=== PATIENT | male | born 1990 | race Caucasian/White ===

== ENCOUNTER 2016-07-04 19:03 | Emergency (ER) | END 2016-07-04 19:44 | disposition home or self-care (01) | DX: L03.011 Cellulitis of right finger (principal) ==

== ENCOUNTER 2016-07-20 20:13 | Emergency (ER) | payer MEDICAID ==
[~2016-07-20] VITALS: Ht 185.4 cm; Wt 88.0 kg
[~2016-07-20 20:13] MED LIST: AMO500 PO; BACTDS PO; CEPH-443 PO; HYDR-906 PO; IBUP-1542 PO; IBUP800T25 PO; NAPR-260 PO
[2016-07-20 21:28] VITALS: Ht 185.4 cm; Wt 88.0 kg
[2016-07-20] MEDS ORDERED: CLIN-73 PO (22:53)
[2016-07-20] MEDS ORDERED: IBUP-1542 PO (22:54)
[2016-07-20] MEDS ORDERED: HYDR-906 PO (22:54)
[2016-07-20] MEDS ORDERED: KETOROLAC 30 MG INJ IM STA (22:55)
--- NOTE | 2016-07-20 23:03 | ERD ---
ER Documentation Chief Complaint Date/Time DATE: 07/20/16 TIME: 22:55 Chief Complaint ingrown Right Toe HPI Patient is a 26-year-old male who presents to the emergency department for concerns of ongoing ingrown right toenail. He was seen here on 07/04/2016 and diagnosed with a paronychia of R big toe. Patient states that he completed the full course of antibiotics which did intermittently resolve his symptoms however they have started again. Patient states that he wears close toed shoes daily at work. Patient reports increased perspiration of feet. Patient reports swelling and erythema surrounding his nailbed. Patient reports having his partial toenail removed in the past. Patient denies any fever, chills, nausea, vomiting. Patient states it is painful to walk. Patient denies any recent trauma to the affected region. Of note, patient has not seen a office clerk assistant yet. He states that he is going to go to his primary care physician for referral this weekend. ROS All systems reviewed and are negative except as per history of present illness. Medications Home Meds Active Scripts Ibuprofen* (Ibuprofen*) 600 Mg Tablet, 600 MG PO Q6, #30 TAB Prov:VANESSA MOSCOSO PA-C 07/20/16 Hydrocodone/Acetaminophen ([place] 5-325 Tablet) 1 Each Tablet, 1 TAB PO Q6H Y for PAIN, #7 TAB Prov:VANESSA MOSCOSO PA-C 07/20/16 Clindamycin Hcl* (Clindamycin Hcl*) 300 Mg Capsule, 300 MG PO TID for 10 Days, CAP Prov:VANESSA MOSCOSO PA-C 07/20/16 Ibuprofen* (Motrin*) 600 Mg Tab, 600 MG PO Q6H Y for PAIN AND OR ELEVATED TEMP, #30 TAB Prov:HELEN GARSIA SOURCING ASSISTANT 07/04/16 Sulfamethoxazole-Trimethoprim* (Bactrim* DS) 800-160 Mg Tab, 1 TAB PO BID for 10 Days, TAB Prov:HELEN GARSIA SOURCING ASSISTANT 07/04/16 Cephalexin* (Keflex*) 500 Mg Capsule, 500 MG PO QID for 10 Days, CAP Prov:HELEN GARSIA SOURCING ASSISTANT 07/04/16 Hydrocodone/Acetaminophen ([place] 5-325 Tablet) 1 Each Tablet, 1 TAB PO Q6H Y for SEVERE PAIN LEVEL 7-10, #20 TAB Prov:HELEN GARSIA CABRERA TLexii SOURCING ASSISTANT 07/04/16 Amoxicillin* (Amoxicillin*) 500 Mg Cap, 500 MG PO BID for 10 Days, #20 CAP Prov:MANAGUELOD,VANESSA P SOURCING ASSISTANT 04/02/16 Ibuprofen* (Ibuprofen*) 600 Mg Tablet, 1 CAP PO Q6 for 7 Days, #30 TAB Prov:MANAGUELOD,VANESSA P SOURCING ASSISTANT 04/02/16 Ibuprofen* (Motrin*) 600 Mg Tab, 600 MG PO Q6, #30 TAB Prov:VI HUFFC 03/12/16 Naproxen* (Naprosyn*) 500 Mg Tablet, 500 MG PO BID Y for PAIN AND/OR INFLAMMATION, #30 TAB Prov:ANDREA POLLACKC 11/25/15 Cephalexin* (Keflex*) 500 Mg Capsule, 500 MG PO QID for 5 Days, CAP Prov:TAVON CARMONA NP 08/30/15 Ibuprofen* (Motrin*) 800 Mg Tab, 800 MG PO Q6H Y for PAIN AND OR ELEVATED TEMP, #30 TAB Prov:TAVON CARMONA SOURCING ASSISTANT 08/30/15 Ibuprofen* (Motrin*) 600 Mg Tab, 600 MG PO Q6, #14 TAB Prov:MARY GRANGER MD 04/18/15 Ibuprofen* (Motrin*) 800 Mg Tab, 800 MG PO Q6H Y for PAIN AND OR ELEVATED TEMP, #30 TAB Prov:VI HUFF PA-C 12/07/14 Cephalexin* (Keflex*) 500 Mg Capsule, 500 MG PO QID for 5 Days, CAP Prov:VI HUFFC 12/07/14 Allergies Allergies: Coded Allergies: No Known Drug Allergies (Verified Allergy, Unknown, 08/30/15) PMhx/Soc History of Surgery: No Anesthesia Reaction: No Hx Neurological Disorder: No Hx Respiratory Disorders: No Hx Cardiac Disorders: No Hx Psychiatric Problems: No Hx Miscellaneous Medical Probl: Yes (right toenail ingrown, paronychia) Hx Alcohol Use: No Hx Substance Use: No Hx Tobacco Use: No Physical Exam Vitals Vital Signs Date Time Temp Pulse Resp B/P Pulse Ox O2 Delivery O2 Flow Rate FiO2 07/20/16 21:28 98.3 81 20 130/77 97 Physical Exam GENERAL: Well-developed, well-nourished male. Appears in no acute distress. HEAD: Normocephalic, atraumatic. EYES: Pupils are equally reactive bilaterally. EOMs grossly intact. No conjunctival erythema. ENT: Moist mucous membranes. No uvula deviation. No kissing tonsils. NECK: Supple. Normal range of motion of the neck. LUNG: Clear to auscultation bilaterally. No rhonchi, wheezing, rales or coarse breath sounds. HEART: Regular rate and rhythm. No murmurs, rubs or gallops. EXTREMITIES: Equal pulses bilaterally. No peripheral clubbing, cyanosis or edema. No unilateral leg swelling. NEUROLOGIC: Alert and oriented. Moving all four extremities without any difficulty. Normal speech. Steady gait. SKIN: Normal color. Warm and dry. RIGHT FOOT, 1st TOE: Partial removal of lateral aspect of toenail noted, consistent with previous history of ingrown toenail removal. Erythema and swelling noted to the lateral aspect of the toenail. Area is tender to palpation. No purulence or discharge was noted. No areas of fluctuance. No lymphatic streaking. Normal ROM of all toes and ankle. Results 24 hrs Current Medications Medications (Trade) Dose Ordered Sig/Lavonne Route PRN Reason Start Time Stop Time Status Last Admin Dose Admin Ketorolac Tromethamine (Toradol) 30 mg ONCE STAT IM 07/20/16 22:55 07/20/16 22:56 DC 07/20/16 23:01 Procedures/MDM MEDICAL DECISION MAKING: Patient is a 26-year-old male who presents with concerns of right first toe ingrown toenail. Patient was seen here on 07/04/16 diagnosed with a paronychia. Physical exam findings today reveal persistence of paronychia, no ingrown toenail findings. Patient states that he has not seen a office clerk assistant yet. At this time, patient's presentation is most consistent with paronychia. Low suspicion for felon, insect bite, trauma, fracture or ingrown toenail. At this time, I will prescribed Clindamycin due to ongoing symptoms. PRESCRIPTION: Clindamycin, Ibuprofen, [place] DISCHARGE: At this time, patient is stable for discharge and outpatient management. I have instructed the patient to follow-up with his/her primary care physician in 1-2 days. Patient will need to see a office clerk assistant EDELMIRA. Epsom salt soaks/ warm compresses advised. Avoid wearing closed toe shoes. Change socks multiple times for excessive sweating of feet. . I have instructed the patient to promptly return to the ER for any new or worsening symptoms including increased pain, fever, nausea, vomiting, weakness or LOC. The patient and/or family expressed understanding of and agreement with this plan. All questions were answered. Home care instructions were provided. Departure Diagnosis: Primary Impression: Paronychia Laterality: right Qualified Code: L03.011 - Paronychia, right Additional Impression: Nail problem Condition: Stable Patient Instructions: Paronychia Referrals: EZEQUIEL GRUBBS DPM, ABID N DPM ESPENSEN, ERIC H. D.P.M. HAGOPJANIAN, ARMEN DPTENNILLE FREEDMAN MD,NADIA LORENZO DPGuero [facility] Additional Instructions: FOLLOW UP WITH YOUR PRIMARY CARE PHYSICIAN TOMORROW.Return to this facility if you are not improving as expected. Patient will need to see a office clerk assistant EDELMIRA for further management of his ongoing paronchyia and ingrown toenail. Epsom salts soaks were advised. Patient should continue antibiotics as prescribed. Take pain medication as prescribed. VANESSA MOSCOSO PA-C Jul 20, 2016 23:03
== END 2016-07-20 23:55 | disposition home or self-care (01) ==
LOC: FTE 20:13
DX: L03.011 Cellulitis of right finger (principal)
CPT/HCPCS: 96372; J1885; Z7502

== ENCOUNTER 2018-11-12 02:55 | Emergency (ER) | payer MEDICAID, OTHER ==
[~2018-11-12] VITALS: Ht 185.4 cm; Wt 88.0 kg
[~2018-11-12 02:55] MED LIST changes: -AMO500 PO; +AMOX500C2 PO; +CLIN300C10 PO; +HYDR-4011 PO; -HYDR-906 PO; -IBUP800T25 PO; +IBUP800T48 PO; -NAPR-260 PO; +NAPR-985 PO
[2018-11-12 02:58] VITALS: Ht 185.4 cm; Wt 88.0 kg
--- NOTE | 2018-11-12 03:48 | ERD ---
ER Documentation Chief Complaint Chief Complaint ingrown toe x 2 days with pain HPI 28-year-old male, previously healthy, presents to the emergency department, complaining of worsening of right hallux pain after trimming the toenail 2 days ago. The patient denies fever or chills. No medications taken at this time. ROS All systems reviewed and are negative except as per history of present illness. Medications Home Meds Active Scripts Ibuprofen* (Motrin*) 400 Mg Tab, 400 MG PO Q6H PRN for PAIN AND OR ELEVATED TEM P, #20 TAB Prov:NIKOLAY WINTER MD 11/12/18 Cephalexin* (Keflex*) 500 Mg Capsule, 500 MG PO BID for 7 Days, CAP Prov:NIKOLAY WINTER MD 11/12/18 Sulfamethoxazole/Trimethoprim* (Bactrim Ds* Tablet) 1 Each Tablet, 1 TAB PO BID, #14 TAB Prov:NIKOLAY WINTER MD 11/12/18 Ibuprofen* (Ibuprofen*) 600 Mg Tablet, 600 MG PO Q6, #30 TAB Prov:VANESSA MOSCOSO PA-C 07/20/16 Hydrocodone/Acetaminophen ([place] 5-325 Tablet) 1 Each Tablet, 1 TAB PO Q6H PRN for PAIN, #7 TAB Prov:VANESSA MOSCOSO PA-C 07/20/16 Clindamycin Hcl* (Clindamycin Hcl*) 300 Mg Capsule, 300 MG PO TID for 10 Days, CAP Prov:VANESSA MOSCOSO PA-C 07/20/16 Ibuprofen* (Motrin*) 600 Mg Tab, 600 MG PO Q6H PRN for PAIN AND OR ELEVATED TEMP, #30 TAB Prov:HELEN GARSIA NP 07/04/16 Sulfamethoxazole-Trimethoprim* (Bactrim* DS) 800-160 Mg Tab, 1 TAB PO BID for 10 Days, TAB Prov:HELEN GARSIA NP 07/04/16 Cephalexin* (Keflex*) 500 Mg Capsule, 500 MG PO QID for 10 Days, CAP Prov:HELEN GARSIA NP 07/04/16 Hydrocodone/Acetaminophen ([place] 5-325 Tablet) 1 Each Tablet, 1 TAB PO Q6H PRN for SEVERE PAIN LEVEL 7-10, #20 TAB Prov:HELEN GARSIALexii LEAD CASE MANAGER 07/04/16 Amoxicillin* (Amoxicillin*) 500 Mg Cap, 500 MG PO BID for 10 Days, #20 CAP Prov:MANAGUELOD,VANESSA P LEAD CASE MANAGER 04/02/16 Ibuprofen* (Ibuprofen*) 600 Mg Tablet, 1 CAP PO Q6 for 7 Days, #30 TAB Prov:MANAGUELOD,VANESSA P LEAD CASE MANAGER 04/02/16 Ibuprofen* (Motrin*) 600 Mg Tab, 600 MG PO Q6, #30 TAB Prov:VI HUFFC 03/12/16 Naproxen* (Naprosyn*) 500 Mg Tablet, 500 MG PO BID PRN for PAIN AND/OR INFLAMMATION, #30 TAB Prov:ANDREA POLLACKC 11/25/15 Cephalexin* (Keflex*) 500 Mg Capsule, 500 MG PO QID for 5 Days, CAP Prov:TAVON CARMONA LEAD CASE MANAGER 08/30/15 Ibuprofen* (Motrin*) 800 Mg Tab, 800 MG PO Q6H PRN for PAIN AND OR ELEVATED TEMP, #30 TAB Prov:TAVON CARMONA. LEAD CASE MANAGER 08/30/15 Ibuprofen* (Motrin*) 600 Mg Tab, 600 MG PO Q6, #14 TAB Prov:MARY GRANGER MD 04/18/15 Ibuprofen* (Motrin*) 800 Mg Tab, 800 MG PO Q6H PRN for PAIN AND OR ELEVATED TEMP, #30 TAB Prov:VI HUFFC 12/07/14 Cephalexin* (Keflex*) 500 Mg Capsule, 500 MG PO QID for 5 Days, CAP Prov:VI HUFFC 12/07/14 Allergies Allergies: Coded Allergies: No Known Drug Allergies (Verified Allergy, Unknown, 08/30/15) PMhx/Soc History of Surgery: No Anesthesia Reaction: No Hx Neurological Disorder: No Hx Respiratory Disorders: No Hx Cardiac Disorders: No Hx Psychiatric Problems: No Hx Miscellaneous Medical Probl: Yes (right toenail ingrown, paronychia) Hx Alcohol Use: No Hx Substance Use: No Hx Tobacco Use: No Smoking Status: Never smoker FmHx Family History: No diabetes, No coronary disease Physical Exam Vitals Vital Signs Date Temp Pulse Resp B/P (MAP) Pulse Ox O2 O2 Flow FiO2 Time Delivery Rate 11/12/18 98.4 68 16 132/72 100 02:58 (92) Physical Exam Const: No acute distress Head: Atraumatic Eyes: Normal Conjunctiva ENT: Normal External Ears, Nose and Mouth. Neck: Full range of motion. No meningismus. Resp: Clear to auscultation bilaterally Cardio: Regular rate and rhythm, no murmurs Abd: Soft, non tender, non distended. Normal bowel sounds Skin: No petechiae or rashes Back: No midline or flank tenderness Ext: Right hallux: Medial nail fold with edema, erythema and purulent discharge. Neur: Awake and alert Psych: Normal Mood and Affect Procedures/MDM Differential diagnoses include paronychia, cellulitis, diabetic ulcer, osteomyelitis. Low suspicion for acute or chronic systemic process. Physical examination consistent with right onychocryptosis with paronychia. Some side effects of prescribed medications (headache, rash, nausea, vomiting, diarrhea, drowsiness, habituation, bleeding, hypertension, interactions with other medications) were reviewed. If the symptoms get worse return to the Emergency Department immediately. Instructions explained and given directly by me to the patient with acknowledgment and demonstrated understanding. Disclaimer: Inadvertent spelling and grammatical errors are likely due to EHR/dictation software use and do not reflect on the overall quality of patient care. Also, please note that the electronic time recorded on this note does not necessarily reflect the actual time of the patient encounter. Departure Diagnosis: Primary Impression: Ingrowing nail, right great toe Condition: Stable Additional Instructions: Thank you very much for allowing us to participate in your care. Your health and safety is our top priority at [facility]. Call your primary care doctor TOMORROW for an appointment during the next 2-4 days and bring all the information provided. Have prescriptions filled and follow precisely the directions on the label. If the symptoms get worse and your provider is unavailable, return to the Emergency Department immediately. NIKOLAY WINTER MD Nov 12, 2018 03:48
[2018-11-12] MEDS ORDERED: CEPH-443 PO (03:50)
[2018-11-12] MEDS ORDERED: IBUP-1561 PO (03:50)
[2018-11-12] MEDS ORDERED: SULF1TAB31 PO (03:50)
[2018-11-12 04:13] VITALS: BP 112/67; PULSE 65; RESP 18
== END 2018-11-12 04:15 | disposition home or self-care (01) ==
LOC: FTE 02:55
DX: L60.0 Ingrowing nail (principal)
CPT/HCPCS: 99283

== ENCOUNTER 2018-11-27 15:36 | Emergency (ER) | payer OTHER ==
[~2018-11-27] VITALS: Ht 185.4 cm; Wt 87.1 kg
[~2018-11-27 15:36] MED LIST changes: +IBUP-1561 PO; +SULF1TAB31 PO
[2018-11-27 15:44] VITALS: BP 134/82; PULSE 100; RESP 20; Ht 185.4 cm; Wt 87.1 kg
[2018-11-27] MEDS ORDERED: SOD CHLORIDE 0.9% 1,000 ML IV STA (16:39)
[2018-11-27] MEDS ORDERED: DICY10CA40 PO (17:57)
--- NOTE | 2018-11-27 18:00 | ERD ---
ER Documentation Chief Complaint Chief Complaint abdominal pain and diarrhea x 1 week got worse HPI Patient is a 28-year-old male, presents the ER for concerns of abdominal pain and diarrhea for 3 days. Patient states that his pain is localized to the umbilical region. Patient describes the pain to be burning in nature. Patient states the pain comes and goes. Patient denies any fevers, chills, nausea or vomiting. Patient reports 3-4 episodes of loose, nonbloody stools per day. Patient states his symptoms started after eating chicken and meat at a cookout. Patient denies any hematocrit emesis. Patient denies any melena. Patient states he did try to take [place] with minimal alleviation of symptoms. Patient is tolerating p.o. fluids. Patient denies any changes in appetite. Patient denies any urinary symptoms. ROS All systems reviewed and are negative except as per history of present illness. Medications Home Meds Active Scripts Dicyclomine HCl (Dicyclomine HCl) 10 Mg Capsule, 10 MG PO TID PRN for ABDOMINAL CRAMPING, #20 CAP Prov:VANESSA MOSCOSO PA-C 11/27/18 Ibuprofen* (Motrin*) 400 Mg Tab, 400 MG PO Q6H PRN for PAIN AND OR ELEVATED TEMP, #20 TAB Prov:NIKOLAY WINTER MD 11/12/18 Cephalexin* (Keflex*) 500 Mg Capsule, 500 MG PO BID for 7 Days, CAP Prov:NIKOLAY WINTER MD 11/12/18 Sulfamethoxazole/Trimethoprim* (Bactrim Ds* Tablet) 1 Each Tablet, 1 TAB PO BID, #14 TAB Prov:NIKOLAY WINTER MD 11/12/18 Ibuprofen* (Ibuprofen*) 600 Mg Tablet, 600 MG PO Q6, #30 TAB Prov:VANESSA MOSCOSO PA-C 07/20/16 Hydrocodone/Acetaminophen ([place] 5-325 Tablet) 1 Each Tablet, 1 TAB PO Q6H PRN for PAIN, #7 TAB Prov:VANESSA MOSCOSO PA-C 07/20/16 Clindamycin Hcl* (Clindamycin Hcl*) 300 Mg Capsule, 300 MG PO TID for 10 Days, CAP Prov:VANESSA MOSCOSO PA-C 07/20/16 Ibuprofen* (Motrin*) 600 Mg Tab, 600 MG PO Q6H PRN for PAIN AND OR ELEVATED TEMP, #30 TAB Prov:HELEN GARSIA TECHNOLOGY COACH 07/04/16 Sulfamethoxazole-Trimethoprim* (Bactrim* DS) 800-160 Mg Tab, 1 TAB PO BID for 10 Days, TAB Prov:HELEN GARSIA TECHNOLOGY COACH 07/04/16 Cephalexin* (Keflex*) 500 Mg Capsule, 500 MG PO QID for 10 Days, CAP Prov:HELEN GARSIA TECHNOLOGY COACH 07/04/16 Hydrocodone/Acetaminophen ([place] 5-325 Tablet) 1 Each Tablet, 1 TAB PO Q6H PRN for SEVERE PAIN LEVEL 7-10, #20 TAB Prov:HELEN GARSIA TECHNOLOGY COACH 07/04/16 Amoxicillin* (Amoxicillin*) 500 Mg Cap, 500 MG PO BID for 10 Days, #20 CAP Prov:MANAGUELOD,VANESSA P TECHNOLOGY COACH 04/02/16 Ibuprofen* (Ibuprofen*) 600 Mg Tablet, 1 CAP PO Q6 for 7 Days, #30 TAB Prov:MANAGUELOD,VANESSA P TECHNOLOGY COACH 04/02/16 Ibuprofen* (Motrin*) 600 Mg Tab, 600 MG PO Q6, #30 TAB Prov:VI HUFF PA-C 03/12/16 Naproxen* (Naprosyn*) 500 Mg Tablet, 500 MG PO BID PRN for PAIN AND/OR INFLAMMATION, #30 TAB Prov:ANDREA POLLACKC 11/25/15 Cephalexin* (Keflex*) 500 Mg Capsule, 500 MG PO QID for 5 Days, CAP Prov:TAVON CARMONA NP 08/30/15 Ibuprofen* (Motrin*) 800 Mg Tab, 800 MG PO Q6H PRN for PAIN AND OR ELEVATED TEMP, #30 TAB Prov:TAVON CARMONA TECHNOLOGY COACH 08/30/15 Ibuprofen* (Motrin*) 600 Mg Tab, 600 MG PO Q6, #14 TAB Prov:MARY GRANGER MD 04/18/15 Ibuprofen* (Motrin*) 800 Mg Tab, 800 MG PO Q6H PRN for PAIN AND OR ELEVATED TEMP, #30 TAB Prov:VI HUFF PA-C 12/07/14 Cephalexin* (Keflex*) 500 Mg Capsule, 500 MG PO QID for 5 Days, CAP Prov:VI HUFF PA-C 12/07/14 Allergies Allergies: Coded Allergies: No Known Drug Allergies (Verified Allergy, Unknown, 08/30/15) PMhx/Soc History of Surgery: No Anesthesia Reaction: No Hx Neurological Disorder: No Hx Respiratory Disorders: No Hx Cardiac Disorders: No Hx Psychiatric Problems: No Hx Miscellaneous Medical Probl: Yes (right toenail ingrown, paronychia) Hx Alcohol Use: No Hx Substance Use: No Hx Tobacco Use: No FmHx Family History: No diabetes Physical Exam Vitals Vital Signs Date Temp Pulse Resp B/P (MAP) Pulse Ox O2 O2 Flow FiO2 Time Delivery Rate 11/27/18 99.3 100 20 134/82 98 15:44 (99) Physical Exam GENERAL: Well-developed, well-nourished male. Appears in no acute distress. HEAD: Normocephalic, atraumatic. EYES: Pupils are equally reactive bilaterally. EOMs grossly intact. No conjun ctival erythema. ENT: Moist mucous membranes. No uvula deviation. No kissing tonsils. NECK: Supple. No meningismus. Normal range of motion of the neck. LUNG: Clear to auscultation bilaterally. No rhonchi, wheezing, rales or coarse breath sounds. HEART: Regular rate and rhythm. No murmurs, rubs or gallops. ABDOMEN: No scars, ecchymosis or rashes noted. Soft, and nondistended. Tender to palpation in bilateral lower quadrants. Positive bowel sounds in all four quadrants. No rebound tenderness, no guarding. (-) McBurney's point tenderness. No CVA tenderness. EXTREMITIES: Equal pulses bilaterally. No peripheral clubbing, cyanosis or edema. No unilateral leg swelling. NEUROLOGIC: Alert and oriented. Moving all four extremities without any difficulty. Normal speech. Steady gait. SKIN: Normal color. Warm and dry. No rashes or lesions. Result Diagram: 11/27/18 1650 11/27/18 1650 Results 24 hrs Laboratory Tests Test 11/27/18 16:50 White Blood Count 9.7 10^3/ul Red Blood Count 5.14 10^6/ul Hemoglobin 15.6 g/dl Hematocrit 46.3 % Mean Corpuscular Volume 90.1 fl Mean Corpuscular Hemoglobin 30.4 pg Mean Corpuscular Hemoglobin Concent 33.7 g/dl Red Cell Distribution Width 12.2 % Platelet Count 226 10^3/UL Mean Platelet Volume 10.9 fl Immature Granulocytes % 0.200 % Neutrophils % 78.1 % Lymphocytes % 11.9 % Monocytes % 6.9 % Eosinophils % 2.8 % Basophils % 0.1 % Nucleated Red Blood Cells % 0.0 /100WBC Immature Granulocytes # 0.020 10^3/ul Neutrophils # 7.6 10^3/ul Lymphocytes # 1.2 10^3/ul Monocytes # 0.7 10^3/ul Eosinophils # 0.3 10^3/ul Basophils # 0.0 10^3/ul Nucleated Red Blood Cells # 0.0 10^3/ul Urine Color YELLOW Urine Clarity CLEAR Urine pH 8.0 Urine Specific Bradley 1.021 Urine Ketones NEGATIVE mg/dL Urine Nitrite NEGATIVE mg/dL Urine Bilirubin NEGATIVE mg/dL Urine Urobilinogen NEGATIVE mg/dL Urine Leukocyte Esterase NEGATIVE Daniel/ul Urine Hemoglobin NEGATIVE mg/dL Urine Glucose NEGATIVE mg/dL Urine Total Protein NEGATIVE mg/dl Sodium Level 140 mmol/L Potassium Level 4.1 mmol/L Chloride Level 101 mmol/L Carbon Dioxide Level 29 mmol/L Anion Gap 10 Blood Urea Nitrogen 11 mg/dl Creatinine 0.69 mg/dl Est Glomerular Filtrat Rate mL/min > 60 mL/min Glucose Level 97 mg/dl Calcium Level 8.6 mg/dl Total Bilirubin 0.9 mg/dl Direct Bilirubin 0.00 mg/dl Indirect Bilirubin 0.9 mg/dl Aspartate Amino Transf (AST/SGOT) 66 IU/L Alanine Aminotransferase (ALT/SGPT) 124 IU/L Alkaline Phosphatase 81 IU/L Total Protein 8.2 g/dl Albumin 4.6 g/dl Globulin 3.60 g/dl Albumin/Globulin Ratio 1.27 Lipase 168 U/L Current Medications Medications Dose Sig/Lavonne Start Time Status Last (Trade) Ordered Route PRN Stop Time Admin Dose Reason Admin Sodium 1,000 ml @ Q1H STAT 11/27/18 DC 11/27/18 Chloride 1,000 mls/hr IV 16:39 17:01 11/27/18 17:38 Procedures/MDM MEDICAL DECISION MAKING: This is a 28-year-old male who presents to the ER for concerns of abdominal pain and diarrhea x3 days.. Vital signs were reviewed. Patient is afebrile. IV line was established. Blood work was obtained. Patient was given IV fluids. CBC showed no evidence of systemic infection or severe anemia. CMP showed no evidence of electrolyte abnormalities, severe acidosis, alkalosis, renal failure. AST was elevated at 66, ALT of 124. Lipase showed no evidence of acute pancreatitis. UA showed no evidence of acute infection or hematuria. CT imaging of abdomen and pelvis unremarkable. See formal report. Upon reevaluation, patient reported improvement in symptoms. At this time, patient's presentation was consistent with abdominal pain or diarrhea. Differential diagnosis included but was not limited to acute coronary syndrome, AAA, mesenteric ischemia, lower lobe pneumonia, DKA, bowel perforation, cholecystitis, choledocholithiasis, ascending cholangitis, hepatic abscess, pancreatitis, PUD, gastritis, GERD, splenic rupture, diverticulitis, UTI, pyelonephritis, nephrolithiasis, appendicitis, constipation, testicular torsion, epididymitis, urethritis, or prostatitis. Patient was advised he may need stool studies if his diarrhea persist on an outpatient basis to rule out any bacterial causes. Advised to follow-up with his primary care physician for the stool studies. PRESCRIPTIONS: [place] DISCHARGE: At this time, patient is stable for discharge and outpatient management. I have instructed the patient to follow-up with his/her primary care physician in 1-2 days. I have instructed the patient to promptly return to the ER at any time for any new or worsening symptoms including increased pain, nausea, vomiting, diarrhea, fever, weakness or LOC. The patient and/or family expressed understanding of and agreement with this plan. All questions were answered. Home care instructions were provided. Disclaimer: Inadvertent spelling and grammatical errors are likely due to EHR/dictation software use and do not reflect on the overall quality of patient care. Also, please note that the electronic time recorded on this note does not necessarily reflect the actual time of the patient encounter. Departure Diagnosis: Primary Impression: Abdominal pain Abdominal location: unspecified location Qualified Codes: R10.9 - Unspecified abdominal pain Additional Impression: Diarrhea Diarrhea type: unspecified type Qualified Codes: R19.7 - Diarrhea, unspecified Condition: Fair Patient Instructions: Abdominal Pain Additional Instructions: Drink plenty of fluids. Follow-up with your primary care physician for stool studies if your diarrhea persists. Call your primary care doctor TOMORROW for an appointment during the next 1-2 days.See the doctor sooner or return here if your condition worsens before your appointment time. VANESSA MOSCOSO PA-C Nov 27, 2018 18:00
== END 2018-11-27 18:05 | disposition home or self-care (01) ==
LOC: FTE 15:36
DX: R10.31 Right lower quadrant pain (principal); R19.7 Diarrhea, unspecified; R10.32 Left lower quadrant pain
CPT/HCPCS: 36415; 74176; 80053; 81003; 83690; 85025; 96360; 99285; J7030